=== PATIENT | female | born 1995 | race Native Hawaiian/Other Pacific Islander ===

== ENCOUNTER 2019-02-16 22:04 | Emergency (ER) | payer OTHER ==
[~2019-02-16] VITALS: Ht 165.1 cm; Wt 86.2 kg
[2019-02-16 22:42] VITALS: TEMP 98.5
[2019-02-17 00:01] LABS: PLATELET COUNT 267 K/uL (152-353)
[2019-02-17 00:13] LABS: POTASSIUM 3.9 mmol/L (3.6-5.2)
[2019-02-17 00:22] LABS: PARTIAL THROMBOPLASTIN TIME 24.7 SECONDS (24.5-33.6)
[2019-02-17 00:30] VITALS: BP 13/78
== END 2019-02-17 00:30 | disposition home or self-care (01) ==
LOC: ED 22:04
PROVIDERS: Hospitalist
DX: O20.0 Threatened abortion (principal)
CPT/HCPCS: 80053; 81000; 81025; 84702; 85027; 85610; 85730; 99284